=== PATIENT | female | born 1965 ===

== ENCOUNTER 2024-05-30 05:30 | Day surgery (SDC) | payer OTHER ==
[~2024-05-30 05:30] MED LIST: B12 ACTIVE1000 MCG PO; CLARITIN10 M1 PO; COZAAR50 MG PO; ERYTHROMYCIN BASE 1 GM TUBE OP ONE; MAGNESIUM400 M1 PO; [UNRECOGNIZED DRUG - OTHER] PO
[2024-05-30] MEDS ORDERED: POVIDONE-IODINE 118 ML BOTT TOP ONE (08:45)
[2024-05-30] MEDS ORDERED: SUGAMMADEX SODIUM 200 MG/2 ML VIAL IV ONE (09:51)
[2024-05-30] MEDS ORDERED: KETOROLAC TROMETHAMINE 30 MG VIAL IV STA (10:07)
[2024-05-30] MEDS ORDERED: KETOROLAC TROMETHAMINE 30 MG VIAL ONE (10:44)
== END 2024-05-30 12:50 | disposition home or self-care (01) ==
LOC: CIR.AMB 05:30
PROVIDERS: ATTEND Obstetrics & Gynecology
DX: D28.2 Benign neoplasm of uterine tubes and ligaments (principal); I10 Essential (primary) hypertension